=== PATIENT | male | born 1960 | race Caucasian/White ===

== ENCOUNTER 2020-08-10 05:31 | Inpatient (IN) | payer OTHER ==
[~2020-08-10] VITALS: Ht 188 cm; Wt 123.1 kg
--- NOTE | 2020-08-10 05:45 | NUR ---
PT BIB [facility] FOR NEW ONSET SEIZURE. WITNESSED BY IN HOTEL ROOM, LASTED 5 MINS, [facility] FOUND PT OUTOF IT AND COMBATIVE. PT HAS HX OR HTN AND "HEART ISSUES", PT GIVEN 5 MG VERSED EN ROUTE DUE TO BECOMING COMBATIVE. PT IS DIAPHORETIC. NAD, VSS, AT BS. PT RESTING ON GURNEY, EYES CLOSED, OCCASIONALLY ATTEMPTING TO SIT UP AND MOVING ALL EXTREMITIES, PT UNRESPONSIVE TO QUESTIONS AT THIS TIME, LOCALIZES TO PAIN, PERRLA. SEIZURE PRECAUTIONS IN PLACE. WCTM. PLACED ON SPO2/BP/ECG MONITORING.
[2020-08-10] MEDS ORDERED: SODIUM CHLORIDE 0.9% 1,000ML IVBOLUS ONE (06:00)
[2020-08-10] MEDS ORDERED: SODIUM CHLORIDE FLUSH 10ML SYR IVF ONE (06:00)
[2020-08-10] MEDS ORDERED: MIDAZOLAM 1 MG/ML, 2ML IVPush ONE (06:00)
[2020-08-10 06:16] LABS: CHLORIDE 112 mmol/L (98-107)
[2020-08-10 06:17] LABS: ALBUMIN 3.6 g/dL (3.4-5.0); ANION GAP 10 mmol/L (5-15); CALCIUM 8.6 mg/dL (8.5-10.1)
[2020-08-10 06:20] LABS: BASOPHILS # (AUTO) 0.02 x10^3/uL (0-0.1); BASOPHILS % (AUTO) 0 % (0-1); EOSINOPHILS # (AUTO) 0.01 x10^3/uL (0-0.4); EOSINOPHILS % (AUTO) 0 % (1-7); LYMPHOCYTES # (AUTO) 1.45 x10^3/uL (1-3.4); LYMPHOCYTES % (AUTO) 28 % (22-44); MD NO; MEAN CORPUSCULAR HEMOGLOBIN 31.3 pg (27.5-34.5); MEAN CORPUSCULAR HGB CONC 33.6 g/dL (33.2-36.2); MEAN CORPUSCULAR VOLUME 93.2 fL (81-97); MONOCYTES # (AUTO) 0.44 x10^3/uL (0.2-0.8); MONOCYTES % (AUTO) 8 % (2-9); NEUTROPHILS # (AUTO) 3.35 x10^3/uL (1.8-6.8); NEUTROPHILS % (AUTO) 64 % (42-75); PLATELET COUNT 203 x10^3/uL (130-400); RED BLOOD COUNT 5.09 x10^6/uL (4.38-5.82); RED CELL DISTRIBUTION WIDTH 13.1 % (9.4-14.8)
[2020-08-10 06:22] LABS: ALANINE AMINOTRANSFERASE 34 U/L (12-78); ALKALINE PHOSPHATASE 94 U/L (45-117); BILIRUBIN,TOTAL 0.4 mg/dL (0.2-1.0); CREATININE 1.18 mg/dL (0.7-1.3); TOTAL PROTEIN 7.3 g/dL (6.4-8.2); TROPONIN I < 0.015 ng/mL (0.000-0.045)
--- NOTE | 2020-08-10 06:32 | NUR ---
pt resting on gurney, back from CT, more awake and aware at this time. alert and oriented to self and family. NAD, WCTM. waiting for additional tests.
--- NOTE | 2020-08-10 06:33 | NUR ---
med rec incomplete, family unsure which meds he takes daily
--- NOTE | 2020-08-10 06:59 | NUR ---
bedside report to delores RN, pt care transferred at this time
--- NOTE | 2020-08-10 08:04 | NUR ---
NEURO IN ROOM
--- NOTE | 2020-08-10 08:04 | NUR ---
URINAL GIVEN TO PT
[2020-08-10] MEDS ORDERED: SODIUM CHLORIDE FLUSH 10ML SYR IVF PRN (08:30)
[2020-08-10] MEDS ORDERED: ACYC-57 PO (09:16)
[2020-08-10] MEDS ORDERED: SIMV20TA19 PO (09:16)
[2020-08-10] MEDS ORDERED: VARD10TA4 PO (09:16)
[2020-08-10] MEDS ORDERED: ATEN25TA PO (09:16)
[2020-08-10] MEDS ORDERED: IBUP-11 PO (09:16)
[2020-08-10] MEDS ORDERED: ASPI-515 PO (09:16)
[2020-08-10] MEDS ORDERED: maalox/diphenh/lido/sucralfate 5 ML PO ONE (10:30)
[2020-08-10] MEDS ORDERED: LORazepam 2 MG/ML, 1ML IVPush PRN (11:30)
[2020-08-10] MEDS ORDERED: ONDANSETRON 2MG/ML, 2ML IVPush PRN (11:30)
[2020-08-10] MEDS ORDERED: ENALAPRILAT 1.25 MG/ML, 1ML IVPush PRN (11:30)
[2020-08-10] MEDS ORDERED: ACETAMINOPHEN 325 MG TABLET PO PRN (11:30)
[2020-08-10 12:57] VITALS: BP 142/44
[2020-08-10 14:07] LABS: AMPHETAMINE SCREEN, URINE Negative (Negative); BARBITURATE SCREEN, URINE Negative (Negative); BENZODIAZEPINE SCREEN, URINE Positive (Negative); CANNABINOID SCREEN, URINE Negative (Negative); COCAINE SCREEN, URINE Negative (Negative); METHADONE SCREEN, URINE Negative (Negative); OPIATE SCREEN, URINE Negative (Negative)
[2020-08-10] MEDS ORDERED: GADOTERATE 10 MMOL/20 ML SYR ONE (15:00)
[2020-08-10] MEDS ORDERED: GADOTERATE 2.5 MMOL/5 ML VIAL ONE (15:00)
[2020-08-10] MEDS: KETOROLAC 30 MG/1 ML IVPush SCH ×2 (17:13→23:07)
[2020-08-10 20:00] VITALS: BP 118/72
[2020-08-10] MEDS ORDERED: SIMVASTATIN 20 MG TABLET PO SCH (21:00)
[2020-08-10] MEDS ORDERED: ATENOLOL 25 MG TABLET PO SCH (22:00)
[2020-08-11 02:00] VITALS: BP 125/73
[2020-08-11] MEDS: KETOROLAC 30 MG/1 ML IVPush SCH ×2 (05:10→11:00)
[2020-08-11 05:15] LABS: CHLORIDE 112 mmol/L (98-107)
[2020-08-11 05:16] LABS: BASOPHILS # (AUTO) 0.04 x10^3/uL (0-0.1); BASOPHILS % (AUTO) 0 % (0-1); EOSINOPHILS % (AUTO) 0 % (1-7); LYMPHOCYTES # (AUTO) 1.58 x10^3/uL (1-3.4); LYMPHOCYTES % (AUTO) 19 % (22-44); MD NO; MEAN CORPUSCULAR HEMOGLOBIN 31.2 pg (27.5-34.5); MEAN CORPUSCULAR HGB CONC 33.2 g/dL (33.2-36.2); MEAN CORPUSCULAR VOLUME 93.8 fL (81-97); MEAN PLATELET VOLUME 9.4 fL (7.4-10.4); MONOCYTES % (AUTO) 9 % (2-9); NEUTROPHILS # (AUTO) 6.09 x10^3/uL (1.8-6.8); NEUTROPHILS % (AUTO) 72 % (42-75); PLATELET COUNT 191 x10^3/uL (130-400); RED CELL DISTRIBUTION WIDTH 13.1 % (9.4-14.8)
[2020-08-11 05:21] LABS: ANION GAP 8 mmol/L (5-15); CALCIUM 9.3 mg/dL (8.5-10.1); CREATININE 0.95 mg/dL (0.7-1.3)
[2020-08-11 06:43] VITALS: BP 123/73
[2020-08-11] MEDS ORDERED: LEVETIRACETAM 500 MG TABLET PO SCH (09:00)
[2020-08-11] MEDS ORDERED: ATENOLOL 25 MG TABLET PO SCH (09:00)
[2020-08-11] MEDS ORDERED: ASPIRIN 81 MG TABLET EC PO SCH (09:00)
[2020-08-11] MEDS ORDERED: LEVE500T53 PO (09:05)
== END 2020-08-11 12:00 | disposition home or self-care (01) | DRG 101 ==
LOC: ED 06:40 → SUATTDRO 08:58 → EDIP 10:09 → 5SO 10:43 → DCLOUNGE 08-11 11:51
PROVIDERS: ADMIT Hospitalist; ATTEND Hospitalist
DX: G40.89 Other seizures (principal); E78.00 Pure hypercholesterolemia, unspecified; E78.5 Hyperlipidemia, unspecified; I10 Essential (primary) hypertension; R32 Unspecified urinary incontinence; S01.512A Laceration without foreign body of oral cavity, initial encounter; W18.39XA Other fall on same level, initial encounter; Y93.89 Activity, other specified; Y92.89 Other specified places as the place of occurrence of the external cause; Y99.8 Other external cause status
CPT/HCPCS: 36415; 70450; 70553; 71045; 80048; 80053; 80307; 83735; 84100; 84484; 85025; 93005; 95819; 96360; 99285; G0378; J1885; A9575; J7030